=== PATIENT | male | born 2000 | race Caucasian/White ===

== ENCOUNTER 2024-01-12 20:34 | Emergency (ER) | payer BC, SELFPAY ==
[2024-01-12 20:35] VITALS: BP 112/74; PULSE 78; RESP 16; TEMP 36; O2SAT 99
--- NOTE | 2024-01-12 21:09 | EX.ED.UPPERE ---
HPI History of Present Illness Chief Complaint: Laceration Detail of Chief Complaint: Hand laceration Informant: patient Narrative Narrative: Patient presents emergency department complaint of laceration to his right hand. Patient states that he was cutting off an exhaust pipe when the pipe swung and lacerated the dorsum of his right hand. Patient is right-hand dominant. Unsure of his last tetanus shot. PFSH PFSH Medical History no medical history Home Medications ?Medication ?Instructions ?Recorded ?Last Taken ?Type cephalexin 500 mg capsule 500 mg PO Q6 #28 CAPSULES 01/12/24 Unknown Rx Allergy/AdvReac Type Severity Reaction Status Date / Time No Known Allergies Allergy Verified 01/12/24 20:35 Surgical History no surgical history Social History Smoking Status: Current every day smoker tobacco type: e-cigarettes ROS ROS ED Review of Systems ROS Unobtainable: other Constitutional Constitutional ED: Reports lethargy; Denies chills, fever(s), sweats or weight loss Eyes Eyes: Denies blurry vision, change in vision or diplopia ENT ENT ED: Denies rhinorrhea or sore throat Cardiovascular Cardiovascular: Denies chest pain, orthopnea or racing heartbeat Respiratory/Chest Respiratory/Chest: Denies cough, dyspnea, dyspnea on exertion, orthopnea or sputum Gastrointestinal Gastrointestinal: Denies abdominal pain, diarrhea, nausea or vomiting Genitourinary Genitourinary ED: Denies dysuria, hematuria or urinary frequency Musculoskeletal Musculoskeletal: Reports other Details: Hand laceration ; Denies arthralgias, back pain, myalgias or neck pain Integumentary Denies abscess, Abrasions or rash Neurologic Neurologic: Denies headache(s) or weakness Psychiatric Psychiatric: Denies anxiety, depression or suicidal thoughts Endocrine Endocrinology: Denies polydipsia, polyphagia or polyuria Hematologic/Lymphatic Hematologic/Lymphatic: Denies easy bleeding, easy bruising or lymphadenopathy Allergic/Immunologic Allergic/Immunologic ED: Denies mouth swelling, tongue swelling or urticaria EXAM Physical Exam Const Vital Signs: 01/12/24 20:35 Temperature 96.8 F L Temperature Source Temporal Pulse Rate 78 Respiratory Rate 16 Blood Pressure 112/74 Blood Pressure Mean 86 Pulse Ox 99 Oxygen Delivery Method Room Air Positive well nourished and well developed General Appearance ED: well developed and NAD HEENT Reports TM's clear and moist mucous membranes normocephalic and atraumatic; Negative for trauma or tenderness Tympanic Membrane ED: Yes TM's clear Eyes PERRL and EOMs intact bilaterally General Eye ED: Negative for pale conjunctiva or scleral icterus Neck no lymphadenopathy, supple and no JVD General: Negative for tenderness Chest Wall inspection of chest normal and palpation of chest normal Chest: Negative for tenderness Resp normal respiratory effort and clear to auscultation bilaterally Effort and Inspection: Negative for respiratory distress or pain with movement Auscultation: Negative for rhonchi, wheezes or diminished lung sounds Cardio regular rate, regular rhythm, S1 normal heart sound, S2 normal heart sound and no murmurs Peripheral Pulses: pulses 2+ throughout GI normal to inspection, nondistended, normoactive bowel sounds, soft to palpation, non-tender, non-distended and no masses Back/Spine no CVA tenderness and no thoracic nor lumbar tenderness Extremity normal to inspection Extremity Narrative: Right hand-patient has a 7 cm laceration to the dorsum of the right hand that is relatively superficial. I am able to visualize the extensor tendon to the long finger but does not seem to be lacerated through flexion extension of the digit. Patient has normal flexion extension of all digits and normal strength. He is neurovascular intact General Extremety ED: Negative for edema General Extremity: Negative for edema Neuro oriented x3, CN's II-XII intact bilaterally, no sensory deficits noted and gait normal Sensorium / Orientation: awake, alert, oriented to person, oriented to place and oriented to time Motor Exam: strength 5/5 throughout and strength abnormal Psych mental status grossly normal Skin no rashes or lesions noted and no wounds MDM MDM MDM Narrative Medical decision making narrative: Patient presents with laceration over the dorsum of the right hand. He is right-hand dominant. I made a goal to visualize the extensor tendon of the third digit. No involvement of the tendon noted but laceration seems to traverse the sheath. Please see procedure note. Patient will be started on Keflex for 1 week. Advised to have sutures removed in 10 days. Patient advised to return if increasing pain, redness, swelling, purulent drainage, or condition worsening way. Lab Data Attestation: I reviewed the patient's lab results. Procedures Lacerations Right hand laceration: Length: 2.76 in Depth: Sub Q Shape: Linear Prep: Sterile Conditions Laceration repair: Irrigated, Lidocaine, Local and Skin sutures Irrigated (ml): 100 Number of Sutures/[place]: 9 Suture Information: Ethilon and 5-0 Discharge Plan Triage Chief Complaint: Laceration ED Provider: Gomez Hemphill Dx/Rx/DC Orders Clinical Impression: Hand laceration Instructions: ED Laceration, Hand: All Closures Prescriptions: New cephalexin 500 mg capsule 500 mg PO Q6 Qty: 28 0RF Primary Care Provider: Sabrina Ge Referrals: Sabrina Ge MD [Primary Care Provider] - 10 Day for suture removal Print Language: Hungarian Disposition Disposition: Home, Self Care
[2024-01-12] MEDS: Diphth,Pertuss(Acell),Tet Vac 0.5 ML Vial IM (21:16)
[2024-01-12] MEDS: Lidocaine 1% (20 ml mdv) 20 ML Vial 10 ML INFILT (21:17)
[2024-01-12] MEDS: Cephalexin 250 MG Capsule 500 MG PO (22:08)
[2024-01-12 22:09] VITALS: BP 127/70; PULSE 76; RESP 14; TEMP 36.5; O2SAT 98
== END 2024-01-12 22:10 | disposition home or self-care (01) ==
PROVIDERS: Emergency Provider Emergency Medicine; PCP Pediatrics; Visit Provider Emergency Medicine
DX: S61.411A Laceration without foreign body of right hand, initial encounter (principal); W26.8XXA Contact with other sharp object(s), not elsewhere classified, initial encounter; Z23 Encounter for immunization; F17.290 Nicotine dependence, other tobacco product, uncomplicated
CPT/HCPCS: 12002; 90715; 99284